=== PATIENT | female | born 1985 | race Two or more races ===

== ENCOUNTER 2016-04-27 13:12 | Inpatient (IN) | payer OTHER ==
[~2016-04-27] VITALS: Ht 149.9 cm; Wt 60.7 kg
[~2016-04-27 13:12] MED LIST: DOCUSATE SODIU100 MG PO; ENDOCET 5-3251 EACH PO; FERROUS SULFAT325 MG PO; GEODON80 MG PO; HYDROXYZINE HCL50 MG PO; IBUPROFEN800 MG PO; K-DUR20 MEQ PO; KEFLEX500 MG PO; MOTRIN800 MG PO; OLANZAPINE10 MG PO; OLANZAPINE5 MG PO; PRENATAL VITAM1 EAC6 PO; PROMETHAZINE HC25 M1 PO; PROZAC20 MG PO; RISPERDAL4 MG PO; RISPERIDONE3 MG PO; SERTRALINE HCL50 MG PO; VENLAFAXINE HCL75 M3 PO; ZOFRAN4 MG PO; ZOLOFT100 MG PO; ZYPREXA5 MG PO
[2016-04-27 14:38] LABS: COCAINE PRESUMPTIVE POSITIVE (150 ng/mL); METHAMPHETAMINE NEGATIVE (500 ng/mL); OPIATES (MORPHINE) NEGATIVE (100 ng/mL); PHENCYCLIDINE NEGATIVE (25 ng/mL); THC CANNABINOIDS NEGATIVE (50 ng/mL)
[2016-04-27 14:39] LABS: ADD MEDTOX COMMENT Y; AMPHETAMINE NEGATIVE (500 ng/mL); BARBITURATES NEGATIVE (200 ng/mL); BENZODIAZEPINES NEGATIVE (150 ng/mL); INTERNAL CONTROLS VALID? YES; METHADONE PRESUMPTIVE POSITIVE (200 ng/mL); OXYCODONE NEGATIVE (100 ng/mL); PROPOXYPHENE NEGATIVE (300 ng/mL); TRICYCLIC ANTIDEPRESSANTS NEGATIVE (300 ng/mL)
[2016-04-27 14:46] LABS: EOSINOPHIL (%) 0.4 % (0-5); HEMATOCRIT 35.7 % (36.0-46.0); IMMATURE GRANULOCYTE (%) 0.1 % (0.0-0.7); IMMATURE GRANULOCYTE COUNT 0.1 K/uL; LYMPHOCYTE COUNT 1.9 K/uL (1.0-2.8); MCH 26.5 PG (29.0-34.0); MCHC 32.5 G/DL (30.0-36.0); MCV 81.5 FL (83-99); MEAN PLAT.VOLUME 9.5 uM^3 (9.5-12.4); MONOCYTE (%) 6.4 % (3-12); MONOCYTE COUNT 0.5 K/uL (0-0.8); NEUTROPHIL (%) 68.9 % (45-76); NEUTROPHIL COUNT 5.4 K/uL (1.8-6.4); PLATELET COUNT 314 K/uL (156-360); RBC DIS.WIDTH-CV 14.4 % (11.8-14.6); RBC DIS.WIDTH-SD 42.4 % (39-53); RED BLOOD COUNT 4.38 M/uL (3.80-5.20); WHITE BLOOD COUNT 7.8 K/uL (4.1-10.2)
[2016-04-27 14:55] LABS: CHLORIDE 103 mEq/L (99-109); POTASSIUM 3.6 mEq/L (3.7-5.4); SODIUM 137 mEq/L (136-147)
[2016-04-27 14:58] LABS: GLUCOSE 72 mg/dL (70-99)
[2016-04-27 14:59] LABS: ANION GAP 11 MEQ/L (2-14); TOTAL BILIRUBIN 0.2 mg/dL (0.0-1.0)
[2016-04-27 15:00] LABS: SERUM ETHYL ALCOHOL < 10 mg/dL
[2016-04-27 15:01] LABS: ALKALINE PHOSPHATASE 72 IU/L (3-129); GFR ESTIMATE (CALCULATED) > 59 mL/min/
[2016-04-27 15:02] LABS: UREA NITROGEN (BUN) 4 mg/dL (9-23)
[2016-04-27 15:10] LABS: QUANTITATIVE HCG < 4.0 MIU/ML
[2016-04-27 18:05] VITALS: BP 113/66
[2016-04-28 08:00] VITALS: BP 69/35
[2016-04-28 09:03] VITALS: BP 95/66
[2016-04-28 16:10] VITALS: BP 109/55
[2016-04-29 07:49] VITALS: BP 108/60
[2016-04-29 15:36] VITALS: BP 89/54
[2016-04-30 07:50] VITALS: BP 109/56
[2016-04-30 15:37] VITALS: BP 89/49
[2016-05-01 08:59] VITALS: BP 111/69
[2016-05-01 15:41] VITALS: BP 95/47
[2016-05-01 19:45] VITALS: BP 118/68
[2016-05-02 07:54] VITALS: BP 96/52
[2016-05-02] MEDS ORDERED: RISPERDAL4 MG PO (14:11)
[2016-05-02] MEDS ORDERED: PROZAC20 MG PO (14:11)
== END 2016-05-02 15:09 | disposition home or self-care (01) | DRG 885 ==
LOC: EME 13:12 → EDOF 15:56 → 1WEST 15:56
PROVIDERS: Emergency Medicine
DX: F20.9 Schizophrenia, unspecified (principal); F12.10 Cannabis abuse, uncomplicated; F14.10 Cocaine abuse, uncomplicated; F10.10 Alcohol abuse, uncomplicated; F17.210 Nicotine dependence, cigarettes, uncomplicated; Z91.138 Patient's unintentional underdosing of medication regimen for other reason; Z91.5 Personal history of self-harm
CPT/HCPCS: 80053; 84702; 84999; 85025; 90837; 97150 GO; 97167 GO; 99281; 99285; G0480; Q0177

== ENCOUNTER 2016-05-18 10:47 | Inpatient (IN) | payer OTHER ==
[~2016-05-18] VITALS: Ht 149.9 cm; Wt 57.9 kg
[2016-05-18 11:26] LABS: EOSINOPHIL (%) 0.1 % (0-5); IMMATURE GRANULOCYTE (%) 0.2 % (0.0-0.7); IMMATURE GRANULOCYTE COUNT 0.2 K/uL; LYMPHOCYTE COUNT 1.3 K/uL (1.0-2.8); MCH 26.8 PG (29.0-34.0); MCHC 33.4 G/DL (30.0-36.0); MCV 80.3 FL (83-99); MONOCYTE (%) 7.3 % (3-12); MONOCYTE COUNT 0.6 K/uL (0-0.8); NEUTROPHIL (%) 77.4 % (45-76); NEUTROPHIL COUNT 6.6 K/uL (1.8-6.4); RBC DIS.WIDTH-CV 14.1 % (11.8-14.6); RBC DIS.WIDTH-SD 40.8 % (39-53); RED BLOOD COUNT 4.36 M/uL (3.80-5.20); WHITE BLOOD COUNT 8.5 K/uL (4.1-10.2)
[2016-05-18 11:29] LABS: MEAN PLAT.VOLUME 9.4 uM^3 (9.5-12.4); PLATELET COUNT 414 K/uL (156-360)
[2016-05-18 11:36] LABS: CHLORIDE 107 mEq/L (99-109); POTASSIUM 3.9 mEq/L (3.7-5.4); SODIUM 141 mEq/L (136-147)
[2016-05-18 11:38] LABS: GLUCOSE 102 mg/dL (70-99)
[2016-05-18 11:40] LABS: ANION GAP 20 MEQ/L (2-14); TOTAL BILIRUBIN 0.2 mg/dL (0.0-1.0)
[2016-05-18 11:41] LABS: SERUM ETHYL ALCOHOL < 10 mg/dL
[2016-05-18 11:42] LABS: ALKALINE PHOSPHATASE 70 IU/L (3-129); GFR ESTIMATE (CALCULATED) > 59 mL/min/
[2016-05-18 11:43] LABS: UREA NITROGEN (BUN) 12 mg/dL (9-23)
[2016-05-18 11:51] LABS: QUANTITATIVE HCG < 4.0 MIU/ML
[2016-05-18 15:47] VITALS: BP 122/79
[2016-05-18 15:52] LABS: AMPHETAMINE NEGATIVE (500 ng/mL); BARBITURATES NEGATIVE (200 ng/mL); BENZODIAZEPINES NEGATIVE (150 ng/mL); COCAINE PRESUMPTIVE POSITIVE (150 ng/mL); INTERNAL CONTROLS VALID? YES; METHADONE PRESUMPTIVE POSITIVE (200 ng/mL); METHAMPHETAMINE NEGATIVE (500 ng/mL); OPIATES (MORPHINE) NEGATIVE (100 ng/mL); OXYCODONE NEGATIVE (100 ng/mL); PHENCYCLIDINE NEGATIVE (25 ng/mL); PROPOXYPHENE NEGATIVE (300 ng/mL); THC CANNABINOIDS PRESUMPTIVE POSITIVE (50 ng/mL); TRICYCLIC ANTIDEPRESSANTS NEGATIVE (300 ng/mL)
[2016-05-18 15:53] LABS: ADD MEDTOX COMMENT Y
[2016-05-18 19:36] VITALS: BP 119/87
[2016-05-19 09:12] VITALS: BP 120/63
[2016-05-19 15:46] VITALS: BP 97/54
[2016-05-20 07:25] VITALS: BP 105/58
[2016-05-20 15:41] VITALS: BP 101/58
[2016-05-21 07:53] VITALS: BP 101/57
[2016-05-21 15:57] VITALS: BP 109/62
[2016-05-22 07:48] VITALS: BP 91/47
[2016-05-22 16:10] VITALS: BP 99/51
[2016-05-23 07:43] VITALS: BP 99/52
[2016-05-23 15:41] VITALS: BP 95/53
[2016-05-24 07:47] VITALS: BP 99/54
[2016-05-24 15:27] VITALS: BP 100/61
[2016-05-25 09:48] VITALS: BP 88/51
[2016-05-25 15:42] VITALS: BP 97/54
[2016-05-26 08:01] VITALS: BP 101/54
== END 2016-05-26 13:32 | disposition home or self-care (01) | DRG 885 ==
LOC: EME → EDBD 10:47 → EDOF 12:34 → 1WEST 12:34 → EDOF 12:41 → 1WEST 15:25
PROVIDERS: Emergency Medicine
DX: F20.9 Schizophrenia, unspecified (principal); F32.9 Major depressive disorder, single episode, unspecified; F17.200 Nicotine dependence, unspecified, uncomplicated; Z59.0 Homelessness; R45.851 Suicidal ideations; F14.20 Cocaine dependence, uncomplicated; F12.20 Cannabis dependence, uncomplicated
CPT/HCPCS: 80053; 84443; 84702; 84999; 85025; 90839; 97150 GO; 97166 GO; 99281; 99284; G0480; J7030

== ENCOUNTER 2016-05-29 05:38 | Emergency (ER) | payer OTHER ==
[~2016-05-29] VITALS: Ht 149.9 cm; Wt 57.8 kg
[2016-05-29 07:35] LABS: SERUM ETHYL ALCOHOL < 10 mg/dL
[2016-05-29 08:01] LABS: QUANTITATIVE HCG < 4.0 MIU/ML
[2016-05-29 09:04] VITALS: BP 105/65
[2016-05-29 10:13] LABS: TREPONEMA ANTIBODY NEGATIVE (NEGATIVE)
[2016-05-30 12:44] LABS: CHLAMYDIA TRACHOMATIS NEGATIVE; NEISSERIA GONORRHOEAE POSITIVE
== END 2016-05-29 09:14 | disposition home or self-care (01) ==
LOC: EME 05:38
PROVIDERS: Emergency Medicine
DX: Z04.41 Encounter for examination and observation following alleged adult rape (principal); Z11.3 Encounter for screening for infections with a predominantly sexual mode of transmission; F17.200 Nicotine dependence, unspecified, uncomplicated
CPT/HCPCS: 84702; 86780; 87491; 87591; 99281; 99285; G0480; J0696

== ENCOUNTER 2016-06-26 15:51 | Inpatient (IN) | payer OTHER ==
[~2016-06-26] VITALS: Ht 149.9 cm; Wt 55.9 kg
[2016-06-26 16:20] LABS: HEMATOCRIT 36.8 % (36.0-46.0); MCH 26.6 PG (29.0-34.0); MCHC 31.3 G/DL (30.0-36.0); MEAN PLAT.VOLUME 9.1 uM^3 (9.5-12.4); PLATELET COUNT 304 K/uL (156-360); RBC DIS.WIDTH-CV 14.6 % (11.8-14.6); RBC DIS.WIDTH-SD 45.2 % (39-53); RED BLOOD COUNT 4.33 M/uL (3.80-5.20); WHITE BLOOD COUNT 6.4 K/uL (4.1-10.2)
[2016-06-26 16:34] LABS: CHLORIDE 107 mEq/L (99-109); POTASSIUM 4.1 mEq/L (3.7-5.4); SODIUM 140 mEq/L (136-147)
[2016-06-26 16:36] LABS: GLUCOSE 81 mg/dL (70-99)
[2016-06-26 16:37] LABS: ANION GAP 12 MEQ/L (2-14)
[2016-06-26 16:39] LABS: SERUM ETHYL ALCOHOL < 10 mg/dL
[2016-06-26 16:40] LABS: GFR ESTIMATE (CALCULATED) > 59 mL/min/
[2016-06-26 16:41] LABS: UREA NITROGEN (BUN) 7 mg/dL (9-23)
[2016-06-26 16:48] LABS: QUANTITATIVE HCG < 4.0 MIU/ML
[2016-06-26 16:51] LABS: AMPHETAMINE NEGATIVE (500 ng/mL); BARBITURATES NEGATIVE (200 ng/mL); BENZODIAZEPINES PRESUMPTIVE POSITIVE (150 ng/mL); COCAINE PRESUMPTIVE POSITIVE (150 ng/mL); METHADONE NEGATIVE (200 ng/mL); METHAMPHETAMINE NEGATIVE (500 ng/mL); OPIATES (MORPHINE) NEGATIVE (100 ng/mL); OXYCODONE NEGATIVE (100 ng/mL); PHENCYCLIDINE NEGATIVE (25 ng/mL); PROPOXYPHENE NEGATIVE (300 ng/mL); THC CANNABINOIDS PRESUMPTIVE POSITIVE (50 ng/mL); TRICYCLIC ANTIDEPRESSANTS NEGATIVE (300 ng/mL)
[2016-06-26 16:52] LABS: ADD MEDTOX COMMENT Y; INTERNAL CONTROLS VALID? YES
[2016-06-26 17:27] LABS: BENZODIAZEPINES QUANT VALUE 0 NG/ML
[2016-06-26 17:31] LABS: BENZODIAZEPINES, URINE SCREEN Negative (200 ng/mL)
[2016-06-26 19:18] VITALS: BP 125/77
[2016-06-26 19:24] VITALS: BP 125/77
[2016-06-27 07:33] VITALS: BP 115/73
[2016-06-27 16:13] VITALS: BP 115/80
[2016-06-28 07:49] VITALS: BP 107/55
[2016-06-28 16:14] VITALS: BP 131/72
[2016-06-29 08:03] VITALS: BP 109/66
[2016-06-29 15:02] VITALS: BP 116/71
[2016-06-30 10:13] VITALS: BP 117/71
[2016-06-30 15:12] VITALS: BP 111/67
[2016-07-01 07:32] VITALS: BP 109/72
[2016-07-01 15:53] VITALS: BP 106/66
[2016-07-02] MEDS ORDERED: RISPERDAL4 MG PO ×2 (07:44→09:48)
[2016-07-02 08:09] VITALS: BP 100/57
== END 2016-07-02 12:45 | disposition home or self-care (01) | DRG 885 ==
LOC: EME 15:51 → EDOF 17:40 → 1WEST 17:40 → EDOF 17:40 → 1WEST 17:40
DX: F20.9 Schizophrenia, unspecified (principal); R45.851 Suicidal ideations; F14.10 Cocaine abuse, uncomplicated; F12.10 Cannabis abuse, uncomplicated; F32.9 Major depressive disorder, single episode, unspecified; F17.200 Nicotine dependence, unspecified, uncomplicated
CPT/HCPCS: 80048; 84702; 84999; 85027; 90839; 97150 GO; 97165 GO; 99281; 99285; G0480

== ENCOUNTER 2016-08-21 18:55 | Inpatient (IN) | payer OTHER ==
[~2016-08-21] VITALS: Ht 149.9 cm; Wt 57.7 kg
[2016-08-21 19:20] LABS: HEMATOCRIT 37.8 % (36.0-46.0); MCH 26.4 PG (29.0-34.0); MCHC 31.5 G/DL (30.0-36.0); MEAN PLAT.VOLUME 9.2 uM^3 (9.5-12.4); PLATELET COUNT 313 K/uL (156-360); RBC DIS.WIDTH-CV 14.9 % (11.8-14.6); RBC DIS.WIDTH-SD 45.7 % (39-53); WHITE BLOOD COUNT 9.1 K/uL (4.1-10.2)
[2016-08-21 19:29] LABS: CHLORIDE 104 mEq/L (99-109); POTASSIUM 3.5 mEq/L (3.7-5.4); SODIUM 138 mEq/L (136-147)
[2016-08-21 19:31] LABS: GLUCOSE 77 mg/dL (70-99)
[2016-08-21 19:32] LABS: ANION GAP 10 MEQ/L (2-14)
[2016-08-21 19:34] LABS: SERUM ETHYL ALCOHOL < 10 mg/dL
[2016-08-21 19:35] LABS: GFR ESTIMATE (CALCULATED) > 59 mL/min/; UREA NITROGEN (BUN) 5 mg/dL (9-23)
[2016-08-21 19:42] LABS: QUANTITATIVE HCG < 4.0 MIU/ML
[2016-08-22 01:31] LABS: AMPHETAMINE NEGATIVE (500 ng/mL); BARBITURATES PRESUMPTIVE POSITIVE (200 ng/mL); BENZODIAZEPINES PRESUMPTIVE POSITIVE (150 ng/mL); COCAINE PRESUMPTIVE POSITIVE (150 ng/mL); INTERNAL CONTROLS VALID? YES; METHADONE NEGATIVE (200 ng/mL); METHAMPHETAMINE NEGATIVE (500 ng/mL); OPIATES (MORPHINE) NEGATIVE (100 ng/mL); OXYCODONE NEGATIVE (100 ng/mL); PHENCYCLIDINE NEGATIVE (25 ng/mL); PROPOXYPHENE NEGATIVE (300 ng/mL); THC CANNABINOIDS PRESUMPTIVE POSITIVE (50 ng/mL); TRICYCLIC ANTIDEPRESSANTS NEGATIVE (300 ng/mL)
[2016-08-22 01:32] LABS: ADD MEDTOX COMMENT Y
[2016-08-22 02:31] LABS: BENZODIAZEPINES QUANT VALUE 0 NG/ML
[2016-08-22 02:42] LABS: BENZODIAZEPINES, URINE SCREEN Negative (200 ng/mL)
[2016-08-22 05:29] VITALS: BP 111/69
[2016-08-22 05:47] VITALS: BP 111/69
[2016-08-22 07:35] VITALS: BP 107/64
[2016-08-22 15:44] VITALS: BP 95/54
[2016-08-23 07:57] VITALS: BP 90/52
[2016-08-23 16:12] VITALS: BP 97/55
[2016-08-24 08:09] VITALS: BP 109/56
[2016-08-24 15:43] VITALS: BP 105/57
[2016-08-25 08:04] VITALS: BP 90/47
[2016-08-25 15:52] VITALS: BP 114/54
[2016-08-26 07:36] VITALS: BP 92/45
[2016-08-26 15:37] VITALS: BP 101/52
[2016-08-27 07:46] VITALS: BP 82/44
== END 2016-08-27 13:42 | disposition home or self-care (01) | DRG 885 ==
LOC: EME 18:55 → EDOF 23:56 → 1WEST 23:56
PROVIDERS: Emergency Medicine
DX: F20.9 Schizophrenia, unspecified (principal); R45.851 Suicidal ideations; Z91.19 Patient's noncompliance with other medical treatment and regimen; F14.10 Cocaine abuse, uncomplicated; F14.20 Cocaine dependence, uncomplicated
CPT/HCPCS: 80048; 84702; 84999; 85027; 90837; 97150 GO; 97165 GO; 99281; 99284; G0480; J2794

== ENCOUNTER 2016-08-29 13:15 | Emergency (ER) | payer OTHER ==
[~2016-08-29] VITALS: Ht 149.9 cm; Wt 55.4 kg
[2016-08-29] MEDS ORDERED: MOTRIN600 MG PO (16:49)
[2016-08-29 17:00] VITALS: BP 112/79
== END 2016-08-29 17:02 | disposition home or self-care (01) ==
LOC: EME → EDBD 13:15 → EME 17:02
DX: S20.212A Contusion of left front wall of thorax, initial encounter (principal); S00.83XA Contusion of other part of head, initial encounter; S00.511A Abrasion of lip, initial encounter; Y04.2XXA Assault by strike against or bumped into by another person, initial encounter; F20.9 Schizophrenia, unspecified; F17.200 Nicotine dependence, unspecified, uncomplicated
CPT/HCPCS: 70110; 71020; 99281; 99284

== ENCOUNTER 2016-10-09 06:00 | Inpatient (IN) | payer OTHER ==
[~2016-10-09] VITALS: Ht 149.9 cm; Wt 57.7 kg
[~2016-10-09 06:00] MED LIST changes: +MOTRIN600 MG PO
[2016-10-09 07:04] LABS: EOSINOPHIL (%) 0.6 % (0-5); EOSINOPHIL COUNT 0.1 K/uL (0-0.3); IMMATURE GRANULOCYTE (%) 0.2 % (0.0-0.7); INSTRUMENT ABS NEUTROPHIL CT 6.7 K/uL; LYMPHOCYTE COUNT 2.3 K/uL (1.0-2.8); MCH 25.7 PG (29.0-34.0); MCHC 31.7 G/DL (30.0-36.0); MCV 81.3 FL (83-99); MEAN PLAT.VOLUME 8.6 uM^3 (9.5-12.4); MONOCYTE (%) 6.1 % (3-12); MONOCYTE COUNT 0.6 K/uL (0-0.8); NEUTROPHIL (%) 69.5 % (45-76); NEUTROPHIL COUNT 6.7 K/uL (1.8-6.4); PLATELET COUNT 336 K/uL (156-360); RBC DIS.WIDTH-CV 14.4 % (11.8-14.6); RBC DIS.WIDTH-SD 42.6 % (39-53); RED BLOOD COUNT 3.69 M/uL (3.80-5.20); WHITE BLOOD COUNT 9.7 K/uL (4.1-10.2)
[2016-10-09 07:34] LABS: CHLORIDE 104 mEq/L (99-109); POTASSIUM 3.4 mEq/L (3.7-5.4); SODIUM 139 mEq/L (136-147)
[2016-10-09 07:36] LABS: GLUCOSE 78 mg/dL (70-99)
[2016-10-09 07:37] LABS: ANION GAP 12 MEQ/L (2-14)
[2016-10-09 07:39] LABS: SERUM ETHYL ALCOHOL < 10 mg/dL
[2016-10-09 07:40] LABS: GFR ESTIMATE (CALCULATED) > 59 mL/min/
[2016-10-09 07:49] LABS: QUANTITATIVE HCG < 4.0 MIU/ML
[2016-10-09 08:28] LABS: UREA NITROGEN (BUN) 9 mg/dL (9-23)
[2016-10-09 11:53] LABS: ADD MIUA? YES; BILIRUBIN SMALL; BLOOD NEGATIVE; COLOR AMBER ((YELLOW)); GLUCOSE (STRIP) NEGATIVE; KETONES 20; LEUKOCYTES MODERATE; NITRITE NEGATIVE; PROTEIN (STRIP) 30; SPECIFIC GRAVITY 1.028 (1.000-1.030)
[2016-10-09 12:04] LABS: COCAINE PRESUMPTIVE POSITIVE (150 ng/mL); PHENCYCLIDINE NEGATIVE (25 ng/mL); THC CANNABINOIDS PRESUMPTIVE POSITIVE (50 ng/mL)
[2016-10-09 12:05] LABS: ADD MEDTOX COMMENT Y; AMPHETAMINE NEGATIVE (500 ng/mL); BARBITURATES NEGATIVE (200 ng/mL); BENZODIAZEPINES PRESUMPTIVE POSITIVE (150 ng/mL); INTERNAL CONTROLS VALID? YES; METHADONE NEGATIVE (200 ng/mL); METHAMPHETAMINE NEGATIVE (500 ng/mL); OPIATES (MORPHINE) NEGATIVE (100 ng/mL); OXYCODONE NEGATIVE (100 ng/mL); PROPOXYPHENE NEGATIVE (300 ng/mL); TRICYCLIC ANTIDEPRESSANTS NEGATIVE (300 ng/mL)
[2016-10-09 12:15] LABS: EPITHELIAL CELLS 2+ /HPF; MUCUS 3+ /LPF
[2016-10-09 12:16] LABS: BACTERIA 1+ /HPF; CASTS NONE SEEN /LPF; CRYSTALS NONE SEEN; RED BLOOD CELLS NONE SEEN /HPF (0-5); WHITE BLOOD CELLS 15-20 /HPF (0-5)
[2016-10-09 12:38] LABS: BENZODIAZEPINES QUANT VALUE 0 NG/ML; BENZODIAZEPINES, URINE SCREEN Negative (200 ng/mL)
[2016-10-10 12:39] VITALS: BP 105/56
[2016-10-10 15:32] VITALS: BP 101/53
[2016-10-11 08:04] VITALS: BP 108/71
[2016-10-11] MEDS ORDERED: RISPERDAL25 MG/2 ML IM (10:05)
[2016-10-11 16:28] VITALS: BP 106/54
[2016-10-12 07:42] VITALS: BP 88/53
[2016-10-12 15:25] VITALS: BP 111/53
[2016-10-13 07:59] VITALS: BP 110/59
[2016-10-13 15:54] VITALS: BP 101/59
[2016-10-14 07:56] VITALS: BP 105/66
== END 2016-10-14 10:50 | disposition home or self-care (01) | DRG 885 ==
LOC: EME 06:00 → 1WEST 10-10 09:48 → EDOF 10-10 09:48 → 1WEST 10-10 12:04
PROVIDERS: Emergency Medicine
DX: F20.9 Schizophrenia, unspecified (principal); R45.851 Suicidal ideations; F14.20 Cocaine dependence, uncomplicated; F12.90 Cannabis use, unspecified, uncomplicated; F19.90 Other psychoactive substance use, unspecified, uncomplicated; R76.0 Raised antibody titer; F17.200 Nicotine dependence, unspecified, uncomplicated; E66.9 Obesity, unspecified; Z68.43 Body mass index [BMI] 50.0-59.9, adult; Z91.5 Personal history of self-harm; Z91.14 Patient's other noncompliance with medication regimen
CPT/HCPCS: 80048; 81003; 84702; 84999; 85025; 90839; 97150 GO; 97165 GO; 99281; 99285; G0480; J0561

== ENCOUNTER 2016-11-05 15:19 | Inpatient (IN) | payer OTHER ==
[~2016-11-05] VITALS: Ht 157.5 cm; Wt 56.9 kg
[~2016-11-05 15:19] MED LIST changes: +RISPERDAL25 MG/2 ML IM
[2016-11-05 16:41] LABS: BASOPHIL COUNT 0.1 K/uL (0-0.1); EOSINOPHIL (%) 0.2 % (0-5); HEMATOCRIT 35.5 % (36.0-46.0); IMMATURE GRANULOCYTE (%) 0.4 % (0.0-0.7); IMMATURE GRANULOCYTE COUNT 0.1 K/uL; INSTRUMENT ABS NEUTROPHIL CT 15.8 K/uL; LYMPHOCYTE COUNT 3.2 K/uL (1.0-2.8); MCH 26.6 PG (29.0-34.0); MCHC 31.5 G/DL (30.0-36.0); MCV 84.3 FL (83-99); MEAN PLAT.VOLUME 9.4 uM^3 (9.5-12.4); MONOCYTE (%) 3.2 % (3-12); MONOCYTE COUNT 0.6 K/uL (0-0.8); NEUTROPHIL (%) 79.9 % (45-76); NEUTROPHIL COUNT 15.8 K/uL (1.8-6.4); NRBC (%) 0.1 /100 WBC (0-0); PLATELET COUNT 323 K/uL (156-360); RBC DIS.WIDTH-CV 14.8 % (11.8-14.6); RBC DIS.WIDTH-SD 45.4 % (39-53); RED BLOOD COUNT 4.21 M/uL (3.80-5.20); WHITE BLOOD COUNT 19.8 K/uL (4.1-10.2)
[2016-11-05 16:50] LABS: AMPHETAMINE NEGATIVE (500 ng/mL); BARBITURATES NEGATIVE (200 ng/mL); BENZODIAZEPINES PRESUMPTIVE POSITIVE (150 ng/mL); COCAINE PRESUMPTIVE POSITIVE (150 ng/mL); INTERNAL CONTROLS VALID? YES; METHADONE NEGATIVE (200 ng/mL); METHAMPHETAMINE NEGATIVE (500 ng/mL); OPIATES (MORPHINE) NEGATIVE (100 ng/mL); OXYCODONE PRESUMPTIVE POSITIVE (100 ng/mL); PHENCYCLIDINE PRESUMPTIVE POSITIVE (25 ng/mL); PROPOXYPHENE NEGATIVE (300 ng/mL); THC CANNABINOIDS PRESUMPTIVE POSITIVE (50 ng/mL); TRICYCLIC ANTIDEPRESSANTS NEGATIVE (300 ng/mL)
[2016-11-05 16:51] LABS: ADD MEDTOX COMMENT Y
[2016-11-05 16:51] LABS: CHLORIDE 103 mEq/L (99-109); POTASSIUM 4.1 mEq/L (3.7-5.4); SODIUM 140 mEq/L (136-147)
[2016-11-05 16:52] LABS: ADD MIUA? YES; BILIRUBIN NEGATIVE; BLOOD NEGATIVE; COLOR YELLOW ((YELLOW)); GLUCOSE (STRIP) NEGATIVE; KETONES 5; LEUKOCYTES TRACE; NITRITE NEGATIVE; PROTEIN (STRIP) 30; SPECIFIC GRAVITY 1.025 (1.000-1.030)
[2016-11-05 16:52] LABS: GLUCOSE 79 mg/dL (70-99)
[2016-11-05 16:54] LABS: ANION GAP 12 MEQ/L (2-14)
[2016-11-05 16:55] LABS: BACTERIA RARE /HPF; EPITHELIAL CELLS 1+ /HPF; MUCUS 2+ /LPF; RED BLOOD CELLS 0-5 /HPF (0-5); UCUL ADDED? NO; WHITE BLOOD CELLS 0-5 /HPF (0-5)
[2016-11-05 16:56] LABS: GFR ESTIMATE (CALCULATED) > 59 mL/min/; SERUM ETHYL ALCOHOL < 10 mg/dL
[2016-11-05 16:57] LABS: UREA NITROGEN (BUN) 8 mg/dL (9-23)
[2016-11-05 17:35] LABS: BENZODIAZEPINES QUANT VALUE 0 NG/ML; BENZODIAZEPINES, URINE SCREEN Negative (200 ng/mL)
[2016-11-05 20:24] VITALS: BP 113/72
[2016-11-06] MEDS ORDERED: MOTRIN600 MG PO (02:01)
[2016-11-06 07:22] VITALS: BP 111/57
[2016-11-06 15:34] VITALS: BP 99/48
[2016-11-07 07:28] VITALS: BP 96/54
[2016-11-07 15:19] VITALS: BP 111/60
[2016-11-08 07:24] VITALS: BP 99/50
[2016-11-08 15:22] VITALS: BP 97/52
[2016-11-09 07:30] VITALS: BP 118/60
[2016-11-09 15:31] VITALS: BP 108/60
[2016-11-10 07:35] VITALS: BP 96/60
[2016-11-10 15:24] VITALS: BP 100/59
[2016-11-11 07:50] VITALS: BP 103/59
== END 2016-11-11 12:38 | disposition home or self-care (01) | DRG 885 ==
LOC: EME 15:19 → 1WEST 19:03 → EDOF 19:03 → 1WEST 20:14
PROVIDERS: Emergency Medicine
DX: F20.9 Schizophrenia, unspecified (principal); R45.851 Suicidal ideations; F14.90 Cocaine use, unspecified, uncomplicated; F16.90 Hallucinogen use, unspecified, uncomplicated; F11.90 Opioid use, unspecified, uncomplicated; F19.90 Other psychoactive substance use, unspecified, uncomplicated; F31.9 Bipolar disorder, unspecified; F17.200 Nicotine dependence, unspecified, uncomplicated
CPT/HCPCS: 80048; 81003; 84999; 85025; 90839; 97150 GO; 97165 GO; 99281; 99285; G0480

== ENCOUNTER 2016-11-14 18:31 | Emergency (ER) | payer OTHER ==
[~2016-11-14] VITALS: Ht 149.9 cm; Wt 54.7 kg
[2016-11-14 19:04] LABS: HEMATOCRIT 37.2 % (36.0-46.0); MCH 26.3 PG (29.0-34.0); MCHC 31.7 G/DL (30.0-36.0); MCV 82.9 FL (83-99); MEAN PLAT.VOLUME 9.1 uM^3 (9.5-12.4); PLATELET COUNT 350 K/uL (156-360); RBC DIS.WIDTH-CV 14.7 % (11.8-14.6); RBC DIS.WIDTH-SD 44.5 % (39-53); RED BLOOD COUNT 4.49 M/uL (3.80-5.20); WHITE BLOOD COUNT 8.9 K/uL (4.1-10.2)
[2016-11-14 19:21] LABS: CHLORIDE 107 mEq/L (99-109); POTASSIUM 3.7 mEq/L (3.7-5.4); SODIUM 142 mEq/L (136-147)
[2016-11-14 19:23] LABS: GLUCOSE 92 mg/dL (70-99)
[2016-11-14 19:24] LABS: ANION GAP 10 MEQ/L (2-14)
[2016-11-14 19:26] LABS: SERUM ETHYL ALCOHOL < 10 mg/dL
[2016-11-14 19:27] LABS: GFR ESTIMATE (CALCULATED) > 59 mL/min/
[2016-11-14 19:28] LABS: UREA NITROGEN (BUN) 8 mg/dL (9-23)
[2016-11-14 19:34] LABS: ADD MEDTOX COMMENT Y; AMPHETAMINE NEGATIVE (500 ng/mL); BARBITURATES NEGATIVE (200 ng/mL); BENZODIAZEPINES PRESUMPTIVE POSITIVE (150 ng/mL); COCAINE PRESUMPTIVE POSITIVE (150 ng/mL); INTERNAL CONTROLS VALID? YES; METHADONE NEGATIVE (200 ng/mL); METHAMPHETAMINE NEGATIVE (500 ng/mL); OPIATES (MORPHINE) NEGATIVE (100 ng/mL); OXYCODONE NEGATIVE (100 ng/mL); PHENCYCLIDINE PRESUMPTIVE POSITIVE (25 ng/mL); PROPOXYPHENE NEGATIVE (300 ng/mL); THC CANNABINOIDS PRESUMPTIVE POSITIVE (50 ng/mL); TRICYCLIC ANTIDEPRESSANTS NEGATIVE (300 ng/mL)
[2016-11-14 20:02] LABS: BENZODIAZEPINES QUANT VALUE 0 NG/ML; BENZODIAZEPINES, URINE SCREEN Negative (200 ng/mL)
[2016-11-14 21:52] VITALS: BP 137/75
== END 2016-11-14 21:54 | disposition home or self-care (01) ==
LOC: EME 18:31
DX: F19.10 Other psychoactive substance abuse, uncomplicated (principal); Z02.83 Encounter for blood-alcohol and blood-drug test; F20.9 Schizophrenia, unspecified; F17.200 Nicotine dependence, unspecified, uncomplicated
CPT/HCPCS: 80048; 84999; 85027; 99281; 99284; G0480

== ENCOUNTER 2016-11-17 20:16 | Inpatient (IN) | payer OTHER ==
[~2016-11-17] VITALS: Ht 149.9 cm; Wt 54.2 kg
[2016-11-17 21:54] LABS: HEMATOCRIT 34.5 % (36.0-46.0); MCH 26.8 PG (29.0-34.0); MCHC 31.6 G/DL (30.0-36.0); MCV 84.8 FL (83-99); MEAN PLAT.VOLUME 9.4 uM^3 (9.5-12.4); PLATELET COUNT 326 K/uL (156-360); RBC DIS.WIDTH-CV 14.6 % (11.8-14.6); RBC DIS.WIDTH-SD 45.3 % (39-53); RED BLOOD COUNT 4.07 M/uL (3.80-5.20); WHITE BLOOD COUNT 7.4 K/uL (4.1-10.2)
[2016-11-17 22:04] LABS: CHLORIDE 107 mEq/L (99-109); POTASSIUM 3.5 mEq/L (3.7-5.4); SODIUM 143 mEq/L (136-147)
[2016-11-17 22:06] LABS: GLUCOSE 76 mg/dL (70-99)
[2016-11-17 22:07] LABS: ANION GAP 9 MEQ/L (2-14)
[2016-11-17 22:09] LABS: GFR ESTIMATE (CALCULATED) > 59 mL/min/; SERUM ETHYL ALCOHOL < 10 mg/dL
[2016-11-17 22:11] LABS: UREA NITROGEN (BUN) 10 mg/dL (9-23)
[2016-11-17 22:13] LABS: SALICYLATE < 5.0 MG/DL (15-30)
[2016-11-17] MEDS ORDERED: FLUOXETINE HCL20 MG PO (22:16)
[2016-11-17] MEDS ORDERED: MULTIVITAMIN1 EAC2 PO (22:17)
[2016-11-18 00:24] VITALS: BP 107/77
[2016-11-18 00:25] VITALS: BP 107/77
[2016-11-18 07:51] VITALS: BP 106/58
[2016-11-18] MEDS ORDERED: RISPERDAL3 MG (11:32)
[2016-11-18] MEDS ORDERED: RISPERDAL3 MG PO (14:46)
[2016-11-18] MEDS ORDERED: RISPERDAL50 MG/2 ML IM (14:46)
== END 2016-11-18 16:10 | disposition home or self-care (01) | DRG 885 ==
LOC: EME → EDBD 20:16 → 1WEST 22:23 → EDOF 22:23 → ENRESERV 23:42 → 1WEST 11-18 00:16
PROVIDERS: Emergency Medicine
DX: F20.9 Schizophrenia, unspecified (principal); F14.259 Cocaine dependence with cocaine-induced psychotic disorder, unspecified; F19.90 Other psychoactive substance use, unspecified, uncomplicated; F11.90 Opioid use, unspecified, uncomplicated; F12.90 Cannabis use, unspecified, uncomplicated; F10.10 Alcohol abuse, uncomplicated; F17.200 Nicotine dependence, unspecified, uncomplicated; R45.851 Suicidal ideations; Z91.14 Patient's other noncompliance with medication regimen; Z91.19 Patient's noncompliance with other medical treatment and regimen
CPT/HCPCS: 80048; 80306 90; 85027; 90839; 99281; 99285; G0480; J2794

== ENCOUNTER 2016-11-24 14:40 | Emergency (ER) | payer OTHER ==
[~2016-11-24] VITALS: Ht 149.9 cm; Wt 55.9 kg
[~2016-11-24 14:40] MED LIST changes: +FLUOXETINE HCL20 MG PO; +MULTIVITAMIN1 EAC2 PO; +RISPERDAL3 MG; +RISPERDAL3 MG PO; +RISPERDAL50 MG/2 ML IM
[2016-11-24 15:41] LABS: EOSINOPHIL (%) 0.5 % (0-5); HEMATOCRIT 33.5 % (36.0-46.0); IMMATURE GRANULOCYTE (%) 0.2 % (0.0-0.7); INSTRUMENT ABS NEUTROPHIL CT 5.1 K/uL; LYMPHOCYTE COUNT 2.7 K/uL (1.0-2.8); MCH 26.7 PG (29.0-34.0); MCHC 32.2 G/DL (30.0-36.0); MCV 82.9 FL (83-99); MEAN PLAT.VOLUME 9.2 uM^3 (9.5-12.4); MONOCYTE (%) 8.7 % (3-12); MONOCYTE COUNT 0.8 K/uL (0-0.8); NEUTROPHIL (%) 59.1 % (45-76); NEUTROPHIL COUNT 5.1 K/uL (1.8-6.4); PLATELET COUNT 329 K/uL (156-360); RBC DIS.WIDTH-CV 14.6 % (11.8-14.6); RBC DIS.WIDTH-SD 44.2 % (39-53); RED BLOOD COUNT 4.04 M/uL (3.80-5.20); WHITE BLOOD COUNT 8.6 K/uL (4.1-10.2)
[2016-11-24 15:54] LABS: CHLORIDE 107 mEq/L (99-109); POTASSIUM 3.6 mEq/L (3.7-5.4); SODIUM 141 mEq/L (136-147)
[2016-11-24 15:55] LABS: GLUCOSE 90 mg/dL (70-99)
[2016-11-24 15:57] LABS: ANION GAP 15 MEQ/L (2-14)
[2016-11-24 15:58] LABS: SERUM ETHYL ALCOHOL < 10 mg/dL
[2016-11-24 15:59] LABS: GFR ESTIMATE (CALCULATED) > 59 mL/min/
[2016-11-24 16:00] LABS: UREA NITROGEN (BUN) 9 mg/dL (9-23)
[2016-11-24 16:08] LABS: QUANTITATIVE HCG < 4.0 MIU/ML
[2016-11-24 16:11] LABS: ADD MIUA? YES; BILIRUBIN NEGATIVE; BLOOD MODERATE; COLOR AMBER ((YELLOW)); GLUCOSE (STRIP) NEGATIVE; KETONES 5; LEUKOCYTES SMALL; NITRITE NEGATIVE; PROTEIN (STRIP) 100; SPECIFIC GRAVITY 1.028 (1.000-1.030)
[2016-11-24 16:26] LABS: AMPHETAMINE NEGATIVE (500 ng/mL); BARBITURATES NEGATIVE (200 ng/mL); BENZODIAZEPINES PRESUMPTIVE POSITIVE (150 ng/mL); COCAINE PRESUMPTIVE POSITIVE (150 ng/mL); INTERNAL CONTROLS VALID? YES; METHADONE NEGATIVE (200 ng/mL); METHAMPHETAMINE NEGATIVE (500 ng/mL); OPIATES (MORPHINE) NEGATIVE (100 ng/mL); OXYCODONE NEGATIVE (100 ng/mL); PHENCYCLIDINE NEGATIVE (25 ng/mL); PROPOXYPHENE NEGATIVE (300 ng/mL); THC CANNABINOIDS PRESUMPTIVE POSITIVE (50 ng/mL); TRICYCLIC ANTIDEPRESSANTS NEGATIVE (300 ng/mL)
[2016-11-24 16:27] LABS: ADD MEDTOX COMMENT Y
[2016-11-24 16:32] LABS: RED BLOOD CELLS RARE /HPF (0-5); WHITE BLOOD CELLS 0-5 /HPF (0-5)
[2016-11-24 16:33] LABS: BACTERIA 2+ /HPF; EPITHELIAL CELLS 2+ /HPF; MUCUS 1+ /LPF
[2016-11-24 17:11] LABS: BENZODIAZEPINES QUANT VALUE 0 NG/ML; BENZODIAZEPINES, URINE SCREEN Negative (200 ng/mL)
[2016-11-24 18:17] VITALS: BP 107/66
== END 2016-11-24 18:19 | disposition home or self-care (01) ==
LOC: EME 14:40
PROVIDERS: Emergency Medicine
DX: F41.9 Anxiety disorder, unspecified (principal); F32.9 Major depressive disorder, single episode, unspecified; F20.9 Schizophrenia, unspecified; R45.851 Suicidal ideations; F14.20 Cocaine dependence, uncomplicated; Z76.5 Malingerer [conscious simulation]; Z59.0 Homelessness; F17.200 Nicotine dependence, unspecified, uncomplicated; F10.10 Alcohol abuse, uncomplicated; F12.10 Cannabis abuse, uncomplicated; F19.10 Other psychoactive substance abuse, uncomplicated
CPT/HCPCS: 80048; 81003; 84702; 84999; 85025; 90839; 99281; 99285; G0480

== ENCOUNTER 2016-11-30 03:03 | Emergency (ER) | payer OTHER ==
[~2016-11-30] VITALS: Ht 149.9 cm; Wt 53.5 kg
[2016-11-30 04:21] LABS: HEMATOCRIT 33.3 % (36.0-46.0); MCH 26.7 PG (29.0-34.0); MCHC 31.8 G/DL (30.0-36.0); MCV 83.9 FL (83-99); MEAN PLAT.VOLUME 9.3 uM^3 (9.5-12.4); PLATELET COUNT 316 K/uL (156-360); RBC DIS.WIDTH-CV 14.7 % (11.8-14.6); RBC DIS.WIDTH-SD 45.2 % (39-53); RED BLOOD COUNT 3.97 M/uL (3.80-5.20); WHITE BLOOD COUNT 8.6 K/uL (4.1-10.2)
[2016-11-30 04:34] LABS: CHLORIDE 106 mEq/L (99-109); POTASSIUM 3.5 mEq/L (3.7-5.4); SODIUM 141 mEq/L (136-147)
[2016-11-30 04:36] LABS: GLUCOSE 77 mg/dL (70-99)
[2016-11-30 04:37] LABS: ANION GAP 12 MEQ/L (2-14)
[2016-11-30 04:39] LABS: SERUM ETHYL ALCOHOL < 10 mg/dL
[2016-11-30 04:40] LABS: GFR ESTIMATE (CALCULATED) > 59 mL/min/
[2016-11-30 04:42] LABS: UREA NITROGEN (BUN) 8 mg/dL (9-23)
[2016-11-30 04:43] LABS: SALICYLATE < 5.0 MG/DL (15-30)
[2016-11-30 04:50] LABS: QUANTITATIVE HCG < 4.0 MIU/ML
[2016-11-30 06:37] LABS: ADD MEDTOX COMMENT Y; AMPHETAMINE NEGATIVE (500 ng/mL); BARBITURATES NEGATIVE (200 ng/mL); BENZODIAZEPINES PRESUMPTIVE POSITIVE (150 ng/mL); COCAINE PRESUMPTIVE POSITIVE (150 ng/mL); INTERNAL CONTROLS VALID? YES; METHADONE NEGATIVE (200 ng/mL); METHAMPHETAMINE NEGATIVE (500 ng/mL); OPIATES (MORPHINE) PRESUMPTIVE POSITIVE (100 ng/mL); OXYCODONE NEGATIVE (100 ng/mL); PHENCYCLIDINE NEGATIVE (25 ng/mL); PROPOXYPHENE NEGATIVE (300 ng/mL); THC CANNABINOIDS PRESUMPTIVE POSITIVE (50 ng/mL); TRICYCLIC ANTIDEPRESSANTS NEGATIVE (300 ng/mL)
[2016-11-30 06:39] LABS: ADD MIUA? YES; BILIRUBIN NEGATIVE; BLOOD LARGE; COLOR YELLOW ((YELLOW)); GLUCOSE (STRIP) NEGATIVE; KETONES 20; LEUKOCYTES TRACE; NITRITE NEGATIVE; PROTEIN (STRIP) 100; SPECIFIC GRAVITY 1.032 (1.000-1.030)
[2016-11-30 06:53] LABS: BACTERIA 1+ /HPF; EPITHELIAL CELLS 2+ /HPF; MUCUS 4+ /LPF; RED BLOOD CELLS 0-5 /HPF (0-5); UCUL ADDED? YES
[2016-11-30 07:28] LABS: BENZODIAZEPINES QUANT VALUE 0 NG/ML; BENZODIAZEPINES, URINE SCREEN Negative (200 ng/mL)
[2016-12-01 07:26] VITALS: BP 110/78
== END 2016-12-01 07:27 | disposition home or self-care (01) ==
LOC: EME 03:03
PROVIDERS: Physician Assistant
DX: F32.9 Major depressive disorder, single episode, unspecified (principal); R45.851 Suicidal ideations; F19.10 Other psychoactive substance abuse, uncomplicated; F20.9 Schizophrenia, unspecified; F17.200 Nicotine dependence, unspecified, uncomplicated; Z59.0 Homelessness
CPT/HCPCS: 80048; 81003; 84702; 84999; 85027; 87086; 90839; 99281; 99285; G0480

== ENCOUNTER 2017-04-15 11:55 | Inpatient (IN) | payer OTHER ==
[~2017-04-15] VITALS: Ht 149.9 cm; Wt 5405.0 kg
[2017-04-15 12:57] LABS: BASOPHIL (%) 0.1 % (0-1); EOSINOPHIL (%) 0.1 % (0-5); HEMATOCRIT 34.4 % (36.0-46.0); HEMOGLOBIN 10.9 G/DL (11.9-15.5); IMMATURE GRANULOCYTE (%) 0.4 % (0.0-0.7); LYMPHOCYTE (%) 22.7 % (15-42); LYMPHOCYTE COUNT 1.9 K/uL (1.0-2.8); MCH 28.1 PG (29.0-34.0); MCHC 31.7 G/DL (30.0-36.0); MCV 88.7 FL (83-99); MONOCYTE (%) 7.8 % (3-12); MONOCYTE COUNT 0.7 K/uL (0-0.8); NEUTROPHIL (%) 68.9 % (45-76); NEUTROPHIL COUNT 5.7 K/uL (1.8-6.4); PLATELET COUNT 298 K/uL (156-360); RBC DIS.WIDTH-CV 14.8 % (11.8-14.6); RBC DIS.WIDTH-SD 48.3 % (39-53); RED BLOOD COUNT 3.88 M/uL (3.80-5.20); WHITE BLOOD COUNT 8.3 K/uL (4.1-10.2)
[2017-04-15 13:10] LABS: ALBUMIN 3.7 g/dL (3.2-4.8); CHLORIDE 107 mEq/L (99-109); SODIUM 142 mEq/L (136-147)
[2017-04-15 13:12] LABS: GLUCOSE 81 mg/dL (70-99)
[2017-04-15 13:13] LABS: TOTAL PROTEIN 6.8 g/dL (6.4-8.3)
[2017-04-15 13:14] LABS: TOTAL BILIRUBIN 0.1 mg/dL (0.0-1.0)
[2017-04-15 13:15] LABS: SERUM ETHYL ALCOHOL < 10 mg/dL
[2017-04-15 13:16] LABS: ALKALINE PHOSPHATASE 67 IU/L (3-129); CREATININE 0.9 mg/dL (0.6-1.3); GFR ESTIMATE (CALCULATED) > 59 mL/min/
[2017-04-15 13:17] LABS: UREA NITROGEN (BUN) 8 mg/dL (9-23)
[2017-04-15 13:18] LABS: AST (GOT) 16 IU/L (2-34)
[2017-04-15 13:19] LABS: ALT (GPT) 16 IU/L (3-49)
[2017-04-15 13:25] LABS: QUANTITATIVE HCG < 4.0 MIU/ML
[2017-04-15 18:08] VITALS: BP 103/63
[2017-04-15 18:08] LABS: AMPHETAMINE NEGATIVE (500 ng/mL); BARBITURATES NEGATIVE (200 ng/mL); BENZODIAZEPINES NEGATIVE (150 ng/mL); BUPRENORPHINE NEGATIVE (10 ng/mL); COCAINE PRESUMPTIVE POSITIVE (150 ng/mL); METHADONE NEGATIVE (200 ng/mL); METHAMPHETAMINE NEGATIVE (500 ng/mL); OPIATES (MORPHINE) NEGATIVE (100 ng/mL); OXYCODONE NEGATIVE (100 ng/mL); PHENCYCLIDINE NEGATIVE (25 ng/mL); PROPOXYPHENE NEGATIVE (300 ng/mL); THC CANNABINOIDS PRESUMPTIVE POSITIVE (50 ng/mL); TRICYCLIC ANTIDEPRESSANTS NEGATIVE (300 ng/mL)
[2017-04-15 18:12] VITALS: BP 103/63
[2017-04-15 18:39] LABS: APPEARANCE SL CLOUDY ((CLEAR)); BILIRUBIN NEGATIVE; BLOOD NEGATIVE; COLOR YELLOW ((YELLOW)); GLUCOSE (STRIP) NEGATIVE; KETONES NEGATIVE; LEUKOCYTES NEGATIVE; NITRITE NEGATIVE; PH, URINE 6.5 (5-8); PROTEIN (STRIP) 100; UROBILINOGEN 0.2 MG/DL (0.2-1.0)
[2017-04-15 19:02] LABS: AMORPHOUS URATES CRYSTALS RARE; BACTERIA RARE /HPF; EPITHELIAL CELLS 1+ /HPF; MUCUS NONE SEEN /LPF; RED BLOOD CELLS 0-5 /HPF (0-5); UCUL ADDED? NO; WHITE BLOOD CELLS 0-5 /HPF (0-5)
[2017-04-16 07:50] VITALS: BP 101/56
[2017-04-16 15:22] VITALS: BP 87/52
[2017-04-17 07:33] VITALS: BP 81/39
[2017-04-17 11:19] VITALS: BP 94/52
[2017-04-17 15:31] VITALS: BP 104/53
[2017-04-18 07:50] VITALS: BP 96/51
[2017-04-18 15:37] VITALS: BP 99/59
[2017-04-19 09:25] VITALS: BP 93/50
[2017-04-19 16:05] VITALS: BP 99/57
[2017-04-20 07:47] VITALS: BP 93/55
[2017-04-20 10:33] VITALS: BP 111/68
[2017-04-20 15:32] VITALS: BP 107/61
[2017-04-21 07:05] VITALS: BP 110/55
[2017-04-21 15:21] VITALS: BP 127/53
[2017-04-22 07:35] VITALS: BP 101/61
[2017-04-22] MEDS ORDERED: RISPERDAL50 MG/2 ML IM (09:49)
== END 2017-04-22 12:26 | disposition home or self-care (01) | DRG 885 ==
LOC: EME 11:55 → 1WEST 16:16 → EDOF 16:16 → ENRESERV 17:17 → 1WEST 17:55
PROVIDERS: Emergency Medicine
DX: F20.9 Schizophrenia, unspecified (principal); F14.20 Cocaine dependence, uncomplicated; F10.10 Alcohol abuse, uncomplicated; F17.200 Nicotine dependence, unspecified, uncomplicated; F32.9 Major depressive disorder, single episode, unspecified; F12.90 Cannabis use, unspecified, uncomplicated; R45.851 Suicidal ideations; G47.10 Hypersomnia, unspecified
CPT/HCPCS: 80053; 81003; 84702; 84999; 85025; 90686; 90837; 97150 GO; 97165 GO; 99281; 99284; G0480; J2794